=== PATIENT | female | born 1955 | race Caucasian/White ===

== ENCOUNTER 2016-09-19 15:49 | Observation (INO) | payer OTHER ==
[~2016-09-19] VITALS: Ht 170.2 cm; Wt 53.1 kg
[2016-09-19] MEDS ORDERED: SODIUM CHLORIDE 0.9% 1,000 ML IV ONE (16:22)
[2016-09-19] MEDS ORDERED: cefTRIAXone 1GM/50ML D5W 50 ML IV ONE (16:30)
[2016-09-19] MEDS ORDERED: ALBUTEROL SULF 2.5 MG/0.5ML(0.5%) NEB SOLN HHN ONE (16:30)
[2016-09-19] MEDS ORDERED: methylPREDNISolone SOD SUCC 125 MG/2 ML VL IV ONE (16:30)
[2016-09-19] MEDS ORDERED: IPRATROPIUM BROM 0.5 MG/2.5ML INH SOL HHN ONE (16:30)
[2016-09-19] MEDS ORDERED: ASPirin 81 mg TAB PO ONE (16:45)
[2016-09-19 16:54] LABS: Basophils # (auto) 0.1 uL; Basophils % (auto) 0.8 % (0.0-2.0); Eosinophils # (auto) 0.2 uL; Hematocrit 39.4 % (36.0-46.0); Hemoglobin 13.3 g/dL (12.2-16.2); Lymphocytes # (auto) 1.5 uL; Mean Corpuscular Hemoglobin 30.3 pg (28.0-32.0); Mean Corpuscular Hgb Conc. 33.8 g/dL (32.0-36.0); Mean Corpuscular Volume 89.7 fL (80.0-100.0); Mean Platelet Volume 8.1 fL (7.4-10.4); Monocytes # (auto) 0.9 uL; Monocytes % (auto) 8.3 % (0.0-12.0); Neutrophils # (auto) 7.8 uL; Neutrophils % (auto) 74.9 % (37.0-80.0); Platelet Count (auto) 458 10^3/uL (140-450); Red Cell Distribution Width 14.1 % (11.6-16.0); White Blood Cell 10.5 10^3/uL (4.4-10.8)
[2016-09-19 17:12] LABS: Allen Test Yes; Base Excess 0.1 mmol/L (-2.0-2.0); Blood 02Sat 91.9 % (96-100); Blood COHb 1.3 % (0.5-1.5); Blood MetHb 0.2 % (0.0-1.5); HCO3 23.8 mmol/L (22-26.0); MODE OXYGENATOR/CPB; O2Hb 90.5 % (94.0-97.0); PCO2 35.7 mmHg (35.0-45.0); PCO2(T) 35.7 mmHg (35.0-45.0); PO2 65.3 mmHg (80.0-100.0); PO2(T) 65.3 mmHg (80.0-100.0); Room ER; Sample Type Arterial; pH 7.442 (7.350-7.450)
[2016-09-19 17:29] LABS: Albumin 3.4 g/dL (3.4-5.0); BUN/Creatinine Ratio 22.2; Calcium 8.9 mg/dL (8.5-10.1); Potassium 4.3 mmol/L (3.5-5.1)
[2016-09-19 17:34] LABS: Bilirubin, Total 0.3 mg/dL (0.2-1.0); Total Protein 6.4 g/dL (6.4-8.2)
[2016-09-19 17:38] LABS: B-Type Natriuretic Peptide 188.06 pg/mL (0-100); Temperature: 22.9 C (20.0-25.0)
[2016-09-19] MEDS ORDERED: ALBUTEROL SULF 2.5 MG/0.5ML(0.5%) NEB SOLN NEB ONE (20:15)
[2016-09-19] MEDS ORDERED: LORazepam 2MG/ML-1ML VIAL IV ONE (20:15)
[2016-09-19] MEDS ORDERED: IPRATROPIUM BROM 0.5 MG/2.5ML INH SOL NEB ONE (20:15)
[2016-09-20 00:29] LABS: Urine RBC None Seen /hpf (0 - 4)
[2016-09-20 00:45] LABS: Urine Bilirubin Negative (Negative); Urine Blood Negative /uL (Negative); Urine Color Yellow (Yellow); Urine Glucose Normal (Normal); Urine Ketone Negative (Negative); Urine Nitrite Negative (Negative); Urine Urobilinogen Normal (Negative); Urine pH 6.5 (5.0-8.0)
[2016-09-20 01:10] VITALS: BP 169/92
== END 2016-09-20 01:40 | disposition home or self-care (01) | DRG 192 ==
LOC: ER 16:06 → OVERFLOW 16:24 → ER 09-20 01:40
PROVIDERS: ADMIT Family Medicine; ATTEND Family Medicine
DX: J44.1 Chronic obstructive pulmonary disease with (acute) exacerbation (principal); I25.10 Atherosclerotic heart disease of native coronary artery without angina pectoris; I10 Essential (primary) hypertension; I15.9 Secondary hypertension, unspecified; E03.9 Hypothyroidism, unspecified; Z95.1 Presence of aortocoronary bypass graft
CPT/HCPCS: 36415; 36600; 71020; 80053; 81001; 82805; 83605; 83735; 83880; 84484; 85025; 85379; 87040; 93005; 94640; 96375; 99285; G0378; J0696; J2060; J2930; 96365